=== PATIENT | female | born 1970 | race Caucasian/White ===

== ENCOUNTER 2021-06-17 09:33 | Outpatient (CLI) | payer OTHER ==
--- NOTE | 2021-06-17 12:56 | XRAY Report ---
PROCEDURE: Shoulder 3 View LT INDICATIONS: HISTORY OF FALLING TECHNIQUE: 3 views of the shoulder were acquired. COMPARISON: None. FINDINGS: Bones: No fractures or dislocations. Mild acromioclavicular joint and glenohumeral joint osteoarthri tic changes are seen. No suspicious bony lesions. Visualized ribs appear intact. Soft tissues: No suspicious soft tissue calcifications. IMPRESSION: No shoulder fracture or dislocation. Mild shoulder joint osteoarthritis. No gross soft t issue abnormality. Reviewed by: Albert Arce MD on 06/17/2021 12:13 PM PST Approved by: Albert Arce MD on 06/17/2021 12:13 PM PST Station ID: [id number]
--- NOTE | 2021-06-17 12:59 | XRAY Report ---
PROCEDURE: Ribs 2 View LT, x-ray INDICATIONS: HISTORY OF FALLING TECHNIQUE: 3 views of the left ribs were acquired. COMPARISON: None FINDINGS: Surgical changes and devices: None. Bones and chest wall: No fractures or dislocations. No suspicious bony lesions. Overlying soft tis sues appear unremarkable. Lungs and pleura: The visualized lung appears clear. No pleural effusions or pneumothorax are visib le. IMPRESSION: No evidence of rib fracture or pneumothorax Reviewed by: Guille Cruz MD on 06/17/2021 11:57 AM [facility] Approved by: Guille Cruz MD on 06/17/2021 11:57 AM [facility] Station ID: [id number]
--- NOTE | 2021-06-17 16:43 | XRAY Report ---
PROCEDURE: Wrist 4 View LT INDICATIONS: HISTORY OF FALLING TECHNIQUE: 4 views of the wrist were acquired. COMPARISON: None FINDINGS: Bones: No fractures or dislocations. No suspicious bony lesions. Scaphoid view: No visualized fracture. Soft tissues: No suspicious soft tissue calcifications. IMPRESSION: No visualized acute fracture or dislocation. However, occult injury cannot be excluded. Recommend elvie rt interval imaging follow-up in 7-10 days as clinically indicated for additional evaluation. Reviewed by: Deidra Stevens MD on 06/17/2021 4:42 PM PST Approved by: Deidra Stevens MD on 06/17/2021 4:42 PM PST Station ID: [id number]
--- NOTE | 2021-06-17 17:19 | XRAY Report ---
PROCEDURE: Cervical Spine 4 View INDICATIONS: HISTORY OF FALLING TECHNIQUE: 4 view(s) of the cervical spine were acquired. COMPARISON: None. FINDINGS: Bones: No fractures or dislocations to the T1 level. Possible partial C2-C3 perched facets. The late ral masses of C1 appear intact on the odontoid view. No suspicious bony lesions. Intervertebral dis c height is normally preserved at all levels. Soft tissues: No prevertebral soft tissue swelling. IMPRESSION: Possible partial C2-C3 perched facets. Recommend CT scan of the cervical spine for additi onal evaluation. Reviewed by: Antoinette Ruiz MD, PhD on 06/17/2021 5:18 PM PST Approved by: Antoinette Ruiz MD, PhD on 06/17/2021 5:18 PM PST Station ID: [id number]
== END 2021-06-17 23:59 | disposition home or self-care (01) ==
LOC: DI.N 09:33
PROVIDERS: ATTEND Family Medicine
DX: Z91.81 History of falling (principal); M19.012 Primary osteoarthritis, left shoulder

== ENCOUNTER 2021-07-29 12:16 | Outpatient (CLI) | payer OTHER ==
--- NOTE | 2021-07-29 18:10 | CT Report ---
PROCEDURE: CERVICAL SPINE WO INDICATIONS: ABN XRAY TECHNIQUE: Noncontrast 3 mm thick sections acquired from the skull base to the T4 level. Sagittal and coronal r eformats were then constructed. For radiation dose reduction, the following was used: automated exp osure control, adjustment of mA and/or kV according to patient size. COMPARISON: Correlation is made with prior cervical spine radiographs, 06/17/2021. FINDINGS: Image quality: Excellent. Bones: No fractures or dislocations. Scrutiny is given to perched facets. None can be seen. Visualiz ed superior ribs are intact. Age-appropriate degenerative changes are seen. Soft tissues: Prevertebral soft tissues are normal in thickness. No paravertebral hematomas. No ap ical pneumothoraces. IMPRESSION: Cervical spine CT within normal limits for age, without perched facet seen. Reviewed by: Tyshawn Spears MD on 07/29/2021 5:09 PM [place] Approved by: Tyshawn Spears MD on 07/29/2021 5:09 PM [facility] Station ID: [id number]
== END 2021-07-29 12:17 | disposition home or self-care (01) ==
LOC: DI 12:16
PROVIDERS: ATTEND Family Medicine
DX: R93.7 Abnormal findings on diagnostic imaging of other parts of musculoskeletal system (principal)